=== PATIENT | male | born 1970 | race Two or more races ===

== ENCOUNTER 2024-06-15 15:32 | Emergency (ER) | payer MEDICAID, OTHER ==
[~2024-06-15] VITALS: Ht 165.1 cm; Wt 77.1 kg
[2024-06-15] MEDS ORDERED: IBUP-1953 PO (20:45)
[2024-06-15 21:26] VITALS: BP 121/82; TEMP 98.3; O2SAT 98
== END 2024-06-15 21:27 | disposition home or self-care (01) ==
LOC: ER 15:43
DX: S93.492A Sprain of other ligament of left ankle, initial encounter (principal); I10 Essential (primary) hypertension; X58.XXXA Exposure to other specified factors, initial encounter; Y93.89 Activity, other specified; Y92.89 Other specified places as the place of occurrence of the external cause; Y99.8 Other external cause status
CPT/HCPCS: 73610-TC

== ENCOUNTER 2025-09-10 00:29 | Inpatient (IN) | payer OTHER ==
[2025-09-10] VITALS (61 sets, daily range): BP systolic 84–136; BP diastolic 50–94; TEMP 97.6–98.4; O2SAT 90–97
[~2025-09-10] VITALS: Ht 160 cm; Wt 76.2 kg
[~2025-09-10 00:29] MED LIST: IBUP-1953 PO
[2025-09-10] MEDS ORDERED: CEFEPIME 2 GM in IV D5W 100 ML IV SCH ×2 (01:00→13:00)
[2025-09-10] MEDS: IV NS 0.9% 1,000 ML BAG IV ONE ×2 (01:04→01:48)
[2025-09-10] MEDS ORDERED: CEFEPIME 1 GM VIAL ONE (01:09)
[2025-09-10] MEDS ORDERED: ACETAMINOPHEN 650 MG/SUPP.RECT RC ONE (01:09)
[2025-09-10] MEDS ORDERED: VANCOMYCIN 1 GM /D5W 250 ML PB IV ONE (01:09)
[2025-09-10] MEDS: CEFEPIME 1 GM in IV D5W 50 ML IV ONE (01:12)
[2025-09-10] MEDS: ACETAMINOPHEN 650 MG/SUPP.RECT RC ONE (01:13)
[2025-09-10 01:15] LABS: PLATELET COUNT (AUTO) 235 K/uL (150-450); RED BLOOD CELL COUNT(AUTO) 4.69 MIL/uL (4.5-6.0); RED CELL DISTRIBUTION WIDTH 15.5 % (11.5-15.0); WHITE BLOOD COUNT (AUTO) 26.4 K/uL (4.3-11.0)
[2025-09-10 01:22] LABS: CALCIUM, SERUM 8.6 mg/dL (8.5-10.1); CREATININE 2.4 mg/dL (0.6-1.3); SODIUM SERUM 135 mmol/L (136-145); UREA NITROGEN, BLOOD 21 mg/dL (7-18)
[2025-09-10 01:27] LABS: ASPARTATE AMINOTRANSFERASE 35 U/L (15-37); TOTAL PROTEIN, SERUM 6.8 g/dL (6.4-8.2)
[2025-09-10 01:28] LABS: INR 1.09 (0.91-1.10)
[2025-09-10 01:31] LABS: LACTIC ACID 8.2 mmol/L (0.4-2.0)
[2025-09-10] MEDS: VANCOMYCIN 1 GM in IV D5W 250 ML IV ONE (01:35)
[2025-09-10] MEDS ORDERED: ALBUMIN 25% 100 ML IV ONE (01:38)
[2025-09-10] MEDS: ALBUMIN 25% 12.5 GM/50 ML BOTTLE IV ONE (01:48)
[2025-09-10] MEDS ORDERED: KETOROLAC TROMETHAMINE INJ 30 MG/ML VIAL ONE (01:51)
[2025-09-10] MEDS: KETOROLAC TROMETHAMINE INJ 30 MG/ML VIAL IV ONE (01:53)
[2025-09-10 02:19] LABS: APPEARANCE,URINE CLEAR (CLEAR); BLOOD, URINE NEGATIVE Ery/uL (NEGATIVE); LEUKOCYTE ESTERASE ,URINE NEGATIVE (NEGATIVE); NITRITE, URINE NEGATIVE (NEGATIVE); UGLUCOSE NEGATIVE (NEGATIVE)
[2025-09-10] MEDS ORDERED: NOREPINEPHRINE 8MG/250ML RTU 250 ML IV ONE (02:37)
[2025-09-10] MEDS ORDERED: dexaMETHasone SOD PHOSPHATE 1 ML ONE (02:37)
[2025-09-10] MEDS: dexaMETHasone SOD PHOSPHATE 10 MG/ML VIAL IV ONE (02:45)
[2025-09-10] MEDS: NOREPINEPHRINE 8 MG in IV NS 0.9% 250 ML IV ONE (02:47)
[2025-09-10 02:54] LABS: ADD URINE CULTURE NO; SQUAMOUS EPITHELIAL CELL,UR 0-2 /HPF (None Seen)
[2025-09-10] MEDS ORDERED: Z GUARD REMEDY 4 OZ OINT TP PRN (04:30)
[2025-09-10] MEDS ORDERED: DOSING PER PHARMACY-VANCOMYCIN IV XX PRN (04:30)
[2025-09-10] MEDS ORDERED: PHENYLEPHRINE 100 MG in IV NS 0.9% 240 ML IV PRN ×2 (04:30→06:00)
[2025-09-10] MEDS ORDERED: NOREPINEPHRINE 32 MG in IV NS 0.9% 218 ML IV PRN ×2 (04:30→06:00)
[2025-09-10 05:23] LABS: LDL 60.0 mg/dL (0-99)
[2025-09-10 05:30] LABS: ABG BASE EXCESS -7.0 mmol/L (-2.0-3.0); ABG OXYGEN SATURATION 94.8 % (94.0-98.0); ABG PCO2 27.7 mmHg (35.0-48.0); ABG PH 7.389 (7.350-7.450); ABG PO2 77.9 mmHg (83.0-108.0); ABG TOTAL HEMOGLOBIN 14.0 G/dL (13.5-17.5); FLOW, BLOOD GAS 4.00 L/min (0.00-30.00); FRACTIONATED INSPIRED OXYGEN 36.0 %; SITE, ABG RIGHT RADIAL
[2025-09-10] MEDS: ENOXAPARIN SODIUM 40 MG/0.4 ML DISP.SYRIN SQ SCH (05:39)
[2025-09-10] MEDS: IV LR 1000 ML 1,000 ML IV SCH (05:40)
[2025-09-10] MEDS ORDERED: DOXYCYCLINE 100 MG VIAL ONE (05:48)
[2025-09-10] MEDS: DOXYCYCLINE 100 MG in IV D5W 100 ML IV SCH (05:57)
[2025-09-10] MEDS: PANTOPRAZOLE 40 MG TABLET.DR PO SCH (08:34)
[2025-09-10] MEDS: HYDROMORPHONE 1 MG/1 ML DISP.SYRIN IV PRN (08:49)
[2025-09-10] MEDS: NOREPINEPHRINE 8 MG in IV NS 0.9% 242 ML IV PRN (08:52)
[2025-09-10] MEDS: POTASSIUM CHLORIDE 10 MEQ TABLET.SA PO ONE (10:18)
[2025-09-10] MEDS: ONDANSETRON HCL/PF 4 MG/2 ML VIAL IVP PRN (13:44)
[2025-09-10] MEDS ORDERED: AMLO-212 PO (14:00)
[2025-09-10] MEDS ORDERED: CELE-85 PO (14:00)
[2025-09-10] MEDS ORDERED: PHENYLEPHRINE 50 MG in IV NS 0.9% 245 ML IV PRN (15:30)
[2025-09-10] MEDS ORDERED: DOXYCYCLINE 100 MG in IV D5W 100 ML IV SCH (21:00)
[2025-09-10] MEDS: METRONIDAZOLE 500MG/ NS 100ML 500 MG in PREMIX 1 EA IV SCH (21:17)
[2025-09-11] VITALS (72 sets, daily range): BP systolic 87–128; BP diastolic 45–93; TEMP 98.4–99.9; O2SAT 91–98
[2025-09-11] MEDS: CEFEPIME 2 GM in IV D5W 100 ML IV SCH (01:20)
[2025-09-11] MEDS: VANCOMYCIN 1 GM in IV D5W 250ml IV SCH ×2 (02:00→14:03)
[2025-09-11 05:24] LABS: PLATELET COUNT (AUTO) 193 K/uL (150-450); RED BLOOD CELL COUNT(AUTO) 3.95 MIL/uL (4.5-6.0); RED CELL DISTRIBUTION WIDTH 15.8 % (11.5-15.0); WHITE BLOOD COUNT (AUTO) 24.8 K/uL (4.3-11.0)
[2025-09-11 05:39] LABS: ASPARTATE AMINOTRANSFERASE 27.0 U/L (15-37); CALCIUM, SERUM 7.7 mg/dL (8.5-10.1); CREATININE 1.2 mg/dL (0.6-1.3); PHOSPHORUS 3.4 mg/dL (2.5-4.9); SODIUM SERUM 140.0 mmol/L (136-145); TOTAL PROTEIN, SERUM 6.1 g/dL (6.4-8.2); UREA NITROGEN, BLOOD 26.0 mg/dL (7-18)
[2025-09-11 10:52] LABS: IRON, SERUM 13.0 ug/dl (50-175); PROSTATE SPECIFIC ANTIGEN SCR 4.46 ng/mL (0.00-4.00)
[2025-09-11 13:12] LABS: INR 1.2 (0.91-1.10)
[2025-09-11 13:14] LABS: FIBRINOGEN ACTIVITY 831.0 Mg/dL (213-485)
[2025-09-11 16:57] LABS: OCCULT BLOOD STOOL NEGATIVE (NEGATIVE)
[2025-09-12] VITALS (17 sets, daily range): BP systolic 111–138; BP diastolic 70–97; TEMP 97.6–99.5; O2SAT 93–97
[2025-09-12] MEDS: TRAZODONE 50 MG TABLET PO PRN (01:20)
[2025-09-12 04:41] LABS: PLATELET COUNT (AUTO) 188 K/uL (150-450); RED BLOOD CELL COUNT(AUTO) 3.53 MIL/uL (4.5-6.0); RED CELL DISTRIBUTION WIDTH 16.1 % (11.5-15.0); WHITE BLOOD COUNT (AUTO) 17.1 K/uL (4.3-11.0)
[2025-09-12 04:50] LABS: ASPARTATE AMINOTRANSFERASE 18.0 U/L (15-37); CALCIUM, SERUM 8.2 mg/dL (8.5-10.1); CREATININE 0.8 mg/dL (0.6-1.3); PHOSPHORUS 2.3 mg/dL (2.5-4.9); SODIUM SERUM 137.0 mmol/L (136-145); TOTAL PROTEIN, SERUM 5.8 g/dL (6.4-8.2); UREA NITROGEN, BLOOD 15.0 mg/dL (7-18)
[2025-09-12 05:05] LABS: INR 1.04 (0.91-1.10)
[2025-09-12 05:08] LABS: FIBRINOGEN ACTIVITY 878.0 Mg/dL (213-485)
[2025-09-12 05:13] LABS: CARCINOEMBRYONIC ANTIGEN (CEA) 4.4 ng/mL (0.0-4.7); FOLIC ACID 13.2 ng/mL (>3.0); IMMUNOGLOBULIN A, SERUM 361 mg/dL (90-386); IMMUNOGLOBULIN M, SERUM 37 mg/dL (20-172)
[2025-09-12 07:10] LABS: FREE KAPPA LT CHAINS SERUM 20.7 mg/L (3.3-19.4); FREE LAMBDA LT CHAIN SERUM 24.2 mg/L (5.7-26.3); KAPPA/LAMBDA RATIO SERUM 0.86 (0.26-1.65)
[2025-09-12] MEDS: POTASSIUM CHLORIDE 20 MEQ TAB.PRT.SR PO SCH (09:52)
[2025-09-12] MEDS: TRIAMCINOLONE OINT 0.1% 15 GM TUBE TP SCH (09:53)
[2025-09-12] MEDS: CEFEPIME 2 GM in IV D5W 100 ML IV SCH (10:19)
[2025-09-12] MEDS: K PHOS NEUTRAL 250 MG TABLET PO ONE (16:11)
[2025-09-12] MEDS: FERROUS SULFATE (325 MG) 325 MG/TAB TABLET PO SCH (16:11)
[2025-09-12] MEDS: ACETAMINOPHEN 325 MG TABLET PO PRN (16:12)
[2025-09-12] MEDS ORDERED: METRONIDAZOLE 500 MG TABLET PO SCH (21:00)
[2025-09-12] MEDS: ENOXAPARIN SODIUM 80 MG/0.8 ML DISP.SYRIN SQ SCH (21:57)
[2025-09-13] VITALS (7 sets, daily range): BP systolic 126–159; BP diastolic 73–92; TEMP 98.4–100.4; O2SAT 94–97
[2025-09-13 07:17] LABS: PLATELET COUNT (AUTO) 171 K/uL (150-450); RED BLOOD CELL COUNT(AUTO) 4.01 MIL/uL (4.5-6.0); RED CELL DISTRIBUTION WIDTH 15.9 % (11.5-15.0); WHITE BLOOD COUNT (AUTO) 9.6 K/uL (4.3-11.0)
[2025-09-13 07:37] LABS: CALCIUM, SERUM 8.9 mg/dL (8.5-10.1); CREATININE 0.7 mg/dL (0.6-1.3); UREA NITROGEN, BLOOD 9.0 mg/dL (7-18)
[2025-09-13 07:44] LABS: SODIUM SERUM 141.0 mmol/L (136-145)
[2025-09-13 08:02] LABS: PHOSPHORUS 3.5 mg/dL (2.5-4.9)
[2025-09-13 10:11] LABS: *SPE A/G RATIO 0.9 (0.7-1.7); *SPE ALBUMIN 2.5 g/dL (2.9-4.4); *SPE ALPHA-1-GLOBULIN 0.4 g/dL (0.0-0.4); *SPE ALPHA-2-GLOBULIN 0.8 g/dL (0.4-1.0); *SPE BETA GLOBULIN 1.0 g/dL (0.7-1.3); *SPE GLOBULIN, TOTAL 2.9 g/dL (2.2-3.9); *SPE M-SPIKE 0.1 g/dL (Not Observed); *SPE PROTEIN TOTAL 5.4 g/dL (6.0-8.5); *SPEGAMMA GLOBULIN 0.7 g/dL (0.4-1.8)
[2025-09-13] MEDS: POTASSIUM CHLORIDE 20 MEQ TAB.PRT.SR PO SCH (10:46)
[2025-09-13] MEDS ORDERED: GADOTERATE MEGLUMINE 10 MMOL/20 ML VIAL IV ONE (10:52)
[2025-09-13] MEDS: IV LR 1000 ML 1,000 ML IV PRN (15:10)
[2025-09-13] MEDS ORDERED: IOHEXOL-350 100 ML VIAL IV ONE (16:40)
[2025-09-13] MEDS ORDERED: IV NS 0.9% 250 ML IV ONE (16:41)
[2025-09-13] MEDS: ENSURE ENLIVE 237 ML LIQUID (VANILLA) PO SCH (17:52)
[2025-09-14 04:00] VITALS: BP 151/92; TEMP 97.9; O2SAT 94
[2025-09-14 07:18] LABS: PLATELET COUNT (AUTO) 226 K/uL (150-450); RED BLOOD CELL COUNT(AUTO) 4.22 MIL/uL (4.5-6.0); RED CELL DISTRIBUTION WIDTH 15.2 % (11.5-15.0); WHITE BLOOD COUNT (AUTO) 8.9 K/uL (4.3-11.0)
[2025-09-14 07:50] LABS: ASPARTATE AMINOTRANSFERASE 35.0 U/L (15-37); CALCIUM, SERUM 8.6 mg/dL (8.5-10.1); CREATININE 0.7 mg/dL (0.6-1.3); PHOSPHORUS 3.4 mg/dL (2.5-4.9); SODIUM SERUM 134.0 mmol/L (136-145); TOTAL PROTEIN, SERUM 6.6 g/dL (6.4-8.2); UREA NITROGEN, BLOOD 8.0 mg/dL (7-18)
[2025-09-14 08:00] VITALS: BP 143/78; TEMP 97.8; O2SAT 95
[2025-09-14 08:21] LABS: INR 1.08 (0.91-1.10)
[2025-09-14 09:08] LABS: FIBRINOGEN ACTIVITY 900.0 Mg/dL (213-485)
[2025-09-14] MEDS: MAGNESIUM OXIDE 400 MG TABLET PO ONE (10:31)
[2025-09-14] MEDS: METRONIDAZOLE 500 MG TABLET PO SCH (13:56)
[2025-09-14 14:04] LABS: EOSINOPHILS % (MANUAL) 2 % (0-4); LYMPHOCYTES % (MANUAL) 11 % (16-48); MONOCYTES % (MANUAL) 6 % (0-11.0); NEUTROPHILS % (MANUAL) 81 (42-76); PLATELET ESTIMATE ADEQUATE
[2025-09-14 16:00] VITALS: BP 129/80; TEMP 98.6; O2SAT 97
[2025-09-14 20:00] VITALS: BP 146/86; TEMP 98.2; O2SAT 98
[2025-09-15 04:00] VITALS: BP 140/93; TEMP 97.7; O2SAT 96
[2025-09-15 08:00] VITALS: BP 140/90; TEMP 98.2; O2SAT 97
[2025-09-15 08:37] LABS: PLATELET COUNT (AUTO) 256 K/uL (150-450); RED BLOOD CELL COUNT(AUTO) 4.65 MIL/uL (4.5-6.0); RED CELL DISTRIBUTION WIDTH 15.5 % (11.5-15.0); WHITE BLOOD COUNT (AUTO) 8.4 K/uL (4.3-11.0)
[2025-09-15 08:52] LABS: CALCIUM, SERUM 9.3 mg/dL (8.5-10.1); CREATININE 0.8 mg/dL (0.6-1.3); SODIUM SERUM 136.0 mmol/L (136-145); UREA NITROGEN, BLOOD 10.0 mg/dL (7-18)
[2025-09-15] MEDS ORDERED: METR500T PO (12:55)
[2025-09-15] MEDS ORDERED: LEVO750T46 PO (12:55)
[2025-09-15 13:00] LABS: LYMPHOCYTES % (MANUAL) 19 % (16-48); NEUTROPHILS % (MANUAL) 81 (42-76); PLATELET ESTIMATE ADEQUATE
[2025-09-15 16:00] VITALS: BP 129/84; TEMP 98.6; O2SAT 98
[2025-09-15 20:00] VITALS: BP 124/82; TEMP 98.2; O2SAT 97
[2025-09-16 04:00] VITALS: BP 119/81; TEMP 98.2; O2SAT 97
[2025-09-16 04:29] VITALS: BP 119/81; TEMP 98.2; O2SAT 97
[2025-09-16 07:46] LABS: PLATELET COUNT (AUTO) 322 K/uL (150-450); RED BLOOD CELL COUNT(AUTO) 4.37 MIL/uL (4.5-6.0); RED CELL DISTRIBUTION WIDTH 15.5 % (11.5-15.0); WHITE BLOOD COUNT (AUTO) 10.0 K/uL (4.3-11.0)
[2025-09-16 07:54] LABS: CALCIUM, SERUM 9.1 mg/dL (8.5-10.1); CREATININE 0.9 mg/dL (0.6-1.3); SODIUM SERUM 133.0 mmol/L (136-145); UREA NITROGEN, BLOOD 14.0 mg/dL (7-18)
[2025-09-16 12:00] VITALS: BP 115/86; TEMP 98.6; O2SAT 95
[2025-09-16 20:00] VITALS: BP 128/82; TEMP 97.7; O2SAT 95
[2025-09-16] MEDS: LEVOFLOXACIN (250MG) 250 MG TABLET PO SCH (20:57)
[2025-09-17 04:00] VITALS: BP 123/75; TEMP 97.7; O2SAT 91
[2025-09-17 09:21] VITALS: BP 139/94; TEMP 97.7; O2SAT 97
[2025-09-17 10:03] LABS: PLATELET COUNT (AUTO) 393 K/uL (150-450); RED BLOOD CELL COUNT(AUTO) 4.50 MIL/uL (4.5-6.0); RED CELL DISTRIBUTION WIDTH 15.3 % (11.5-15.0); WHITE BLOOD COUNT (AUTO) 11.7 K/uL (4.3-11.0)
[2025-09-17 11:05] LABS: INR 1.18 (0.91-1.10)
[2025-09-17 12:00] VITALS: BP 141/83; TEMP 98.6; O2SAT 99
[2025-09-17 12:10] LABS: FIBRINOGEN ACTIVITY 900.0 Mg/dL (213-485)
[2025-09-17 14:14] LABS: EOSINOPHILS % (MANUAL) 3 % (0-4); LYMPHOCYTES % (MANUAL) 6 % (16-48); MONOCYTES % (MANUAL) 7 % (0-11.0); MYELOCYTES % 4 % (0-0); NEUTROPHILS % (MANUAL) 80 (42-76); PLATELET ESTIMATE ADEQUATE
[2025-09-17 20:00] VITALS: BP 123/82; TEMP 97.3; O2SAT 100
[2025-09-18 04:00] VITALS: BP 130/80; TEMP 97.5; O2SAT 100
[2025-09-18 07:42] LABS: INR 1.13 (0.91-1.10)
[2025-09-18 08:08] LABS: PLATELET COUNT (AUTO) 475 K/uL (150-450); RED BLOOD CELL COUNT(AUTO) 4.30 MIL/uL (4.5-6.0); RED CELL DISTRIBUTION WIDTH 15.5 % (11.5-15.0); WHITE BLOOD COUNT (AUTO) 12.9 K/uL (4.3-11.0)
[2025-09-18 08:35] LABS: FIBRINOGEN ACTIVITY 900.0 Mg/dL (213-485)
[2025-09-18] MEDS: APIXABAN 5 MG TABLET PO SCH (08:52)
[2025-09-18] MEDS: HYDROCODONE/APAP 10/325MG TABLET PO ONE (09:11)
[2025-09-18 12:00] VITALS: BP 130/80; TEMP 97.5; O2SAT 100
[2025-09-18] MEDS: HYDROCODONE/APAP 10/325MG TABLET PO PRN (13:44)
[2025-09-18] MEDS ORDERED: IV NS 0.9% 1,000 ML BAG IV ONE (14:00)
[2025-09-18] MEDS: IV NS 0.9% 500 ML BAG IV ONE (14:16)
[2025-09-18] MEDS ORDERED: HYDROCODONE/APAP 10/325MG TABLET PO PRN (15:00)
[2025-09-18 16:00] VITALS: BP 136/82; TEMP 97.5; O2SAT 100
[2025-09-18] MEDS ORDERED: DOCUSATE SODIUM 100 MG CAPSULE PO SCH (17:00)
== END 2025-09-18 19:32 | DRG 720 ==
LOC: ER 00:30 → ICU 02:02 → TELE1 09-12 13:01 → MEDSG1 09-13 12:48
PROVIDERS: ADMIT Nurse Practitioner Acute Care
DX: A41.9 Sepsis, unspecified organism (principal); R65.21 Severe sepsis with septic shock; E87.20 Acidosis, unspecified; J69.0 Pneumonitis due to inhalation of food and vomit; I82.622 Acute embolism and thrombosis of deep veins of left upper extremity; M00.9 Pyogenic arthritis, unspecified; N17.9 Acute kidney failure, unspecified; Z79.01 Long term (current) use of anticoagulants; I10 Essential (primary) hypertension; D50.9 Iron deficiency anemia, unspecified; K76.0 Fatty (change of) liver, not elsewhere classified; E87.6 Hypokalemia; E87.1 Hypo-osmolality and hyponatremia; Z20.822 Contact with and (suspected) exposure to COVID-19; E78.5 Hyperlipidemia, unspecified; E78.00 Pure hypercholesterolemia, unspecified; Z79.899 Other long term (current) drug therapy; Z98.890 Other specified postprocedural states; D16.9 Benign neoplasm of bone and articular cartilage, unspecified; M89.8X9 Other specified disorders of bone, unspecified site; M16.0 Bilateral primary osteoarthritis of hip; Q65.89 Other specified congenital deformities of hip; Z75.1 Person awaiting admission to adequate facility elsewhere; I83.93 Asymptomatic varicose veins of bilateral lower extremities; S61.215A Laceration without foreign body of left ring finger without damage to nail, initial encounter; Y92.9 Unspecified place or not applicable; X58.XXXA Exposure to other specified factors, initial encounter; K58.9 Irritable bowel syndrome, unspecified; R21 Rash and other nonspecific skin eruption; D16.21 Benign neoplasm of long bones of right lower limb
CPT/HCPCS: 36415; 36600; 71045-TC; 71250-TC; 71260-TC; 73552; 73723-TC; 77075-TC; 80048-TC; 80053-TC; 80061-TC; 80076-TC; 80202-TC; 81001; 82232; 82272-TC; 82378; 82607-TC; 82728-TC; 82784; 83540-TC; 83605-TC; 83735-TC; 84100-TC; 84153-TC; 84155; 84165; 84443-TC; 85025-TC; 85027-TC; 85396; 85652-TC; 85730-TC; 86140-TC; 86334; 86747; 87040-TC; 87081-TC; 87086-TC; 93307-TC; 93971-TC; 94799-TC; 97110-TC; 97112-TC; 97530-TC; 97535-TC; A4216; A4223; A6403; A9575; G0378; J0692; J1100; J1171; J1650; J1885; J2405; J3373; J3490; J7030; J7040; J7050; J7060; J7070; J7120; P9047; Q9967

== ENCOUNTER 2025-09-26 14:36 | Emergency (ER) | payer OTHER ==
[~2025-09-26] VITALS: Ht 160 cm; Wt 76.2 kg
[~2025-09-26 14:36] MED LIST changes: +AMLO-212 PO; +CELE-85 PO; -IBUP-1953 PO; +LEVO750T46 PO; +METR500T PO; +SULF1TAB48 PO
[2025-09-26 15:24] LABS: PLATELET COUNT (AUTO) 809 K/uL (150-450); RED BLOOD CELL COUNT(AUTO) 3.85 MIL/uL (4.5-6.0); RED CELL DISTRIBUTION WIDTH 16.0 % (11.5-15.0); WHITE BLOOD COUNT (AUTO) 12.2 K/uL (4.3-11.0)
[2025-09-26 15:39] LABS: LACTIC ACID 1.0 mmol/L (0.4-2.0)
[2025-09-26 15:40] LABS: APPEARANCE,URINE CLEAR (CLEAR); BLOOD, URINE 1+ Ery/uL (NEGATIVE); LEUKOCYTE ESTERASE ,URINE NEGATIVE (NEGATIVE); NITRITE, URINE NEGATIVE (NEGATIVE); UGLUCOSE NEGATIVE (NEGATIVE)
[2025-09-26 15:42] LABS: INR 1.22 (0.91-1.10)
[2025-09-26 15:43] LABS: CALCIUM, SERUM 9.0 mg/dL (8.5-10.1); CREATININE 0.7 mg/dL (0.6-1.3); SODIUM SERUM 131.0 mmol/L (136-145); UREA NITROGEN, BLOOD 14.0 mg/dL (7-18)
[2025-09-26 15:46] LABS: ASPARTATE AMINOTRANSFERASE 39.0 U/L (15-37); TOTAL PROTEIN, SERUM 8.4 g/dL (6.4-8.2)
[2025-09-26] MEDS: CEFTRIAXONE 1 G in IV D5W 50 ML IV ONE (15:50)
[2025-09-26] MEDS ORDERED: CLON0.1T PO (15:53)
[2025-09-26] MEDS ORDERED: HYDR-3980 PO (15:53)
[2025-09-26] MEDS ORDERED: OXYC1TAB10 PO (15:53)
[2025-09-26] MEDS ORDERED: NIFE-35 PO (15:53)
[2025-09-26] MEDS ORDERED: TRIA80CR12 TP (15:53)
[2025-09-26] MEDS ORDERED: FERR325T30 PO (15:53)
[2025-09-26] MEDS ORDERED: ACET325T53 PO (15:53)
[2025-09-26] MEDS ORDERED: DOCU100C36 PO (15:53)
[2025-09-26] MEDS ORDERED: ONDA-97 PO (15:53)
[2025-09-26] MEDS ORDERED: APIX5TAB PO (15:53)
[2025-09-26] MEDS ORDERED: TRAZ-182 PO (15:53)
[2025-09-26] MEDS ORDERED: MAG30ORA PO (15:53)
[2025-09-26] MEDS ORDERED: LACT-58 PO (15:53)
[2025-09-26] MEDS ORDERED: PANT40TA49 PO (15:53)
[2025-09-26] MEDS ORDERED: LEVO500T90 PO (15:53)
[2025-09-26 16:00] LABS: EOSINOPHILS % (MANUAL) 1 % (0-4); LYMPHOCYTES % (MANUAL) 9 % (16-48); MONOCYTES % (MANUAL) 3 % (0-11.0); NEUTROPHILS % (MANUAL) 87 (42-76); PLATELET ESTIMATE INCREASED
[2025-09-26 16:02] LABS: ADD URINE CULTURE YES; SQUAMOUS EPITHELIAL CELL,UR Few /HPF (None Seen)
[2025-09-26] MEDS ORDERED: IV NS 0.9% 250 ML IV ONE (16:47)
[2025-09-26] MEDS ORDERED: IOHEXOL-300 100 ML VIAL IV ONE (16:47)
[2025-09-26] MEDS: VANCOMYCIN 1 GM in IV D5W 250 ML IV ONE (17:50)
[2025-09-26 19:45] VITALS: TEMP 98.4
[2025-09-26] MEDS: IV NS 0.9% 1,000 ML BAG IV ONE (19:59)
[2025-09-26 22:12] VITALS: BP 129/66; O2SAT 97
[2025-09-26] MEDS ORDERED: HYDROCODONE/APAP 5/325MG TABLET ONE (23:20)
[2025-09-26] MEDS: HYDROCODONE/APAP 5/325MG TABLET PO ONE (23:22)
== END 2025-09-26 23:36 | disposition short-term general hospital (02) ==
LOC: ER 14:40
DX: A41.9 Sepsis, unspecified organism (principal); L03.113 Cellulitis of right upper limb; I10 Essential (primary) hypertension; Z79.01 Long term (current) use of anticoagulants; Z79.899 Other long term (current) drug therapy
CPT/HCPCS: 99291; 73201; 96365; 93971; 96361; 71045; 96367; 96366; 93005; 84145; 85025; 80048; 87040 ×2; 87086; 83605; 80076; 81001; 36415; 85730; 85027; 85007; J0696; J3373; J7060; J7050; Q9967